=== PATIENT | male | born 1995 | race Caucasian/White ===

== ENCOUNTER 2024-02-02 09:20 | Emergency (ER) | payer OTHER, SELFPAY ==
[2024-02-02 09:31] VITALS: BP 171/106
--- NOTE | 2024-02-02 10:35 | ED.GENMED ---
History of Present Illness
General
Chief Complaint: DVT/Possible Blood Clot
Source: patient
Exam Limitations: none
Time Seen by Provider: 02/02/24 10:31
History of Present Illness
History of Present Illness:
See MDM
Past History
Past History
ED Past Medical History: Psychiatric
Social History
Personal: Single
Phy Exam
Physical Exam
Physical Exam:
See MDM
Course
Orders/Labs/Results
Orders:
Orders
02/02/24 10:34
US Periph Venous LOWER Ext LT Urgent
Comment:
Reason For Exam: left thigh pain
Vital Signs
Initial and Last Documented VS:
Initial Vital Signs
Temp Pulse Resp BP Pulse Ox
98.1 F 105 18 171/106 98
02/02/24 09:31 02/02/24 09:31 02/02/24 09:31 02/02/24 09:31 02/02/24 09:31
Last Documented Vital Signs
Temp Pulse Resp BP Pulse Ox
98.1 F 105 18 171/106 98
02/02/24 09:31 02/02/24 09:31 02/02/24 09:31 02/02/24 09:31 02/02/24 09:31
MDM/Problems Addressed
Differential Diagnosis Includes:
HPI and MDM Narrative:
28-year-old male presenting with left thigh pain. Patient has been developing bilateral flank pain for the past several days. He woke up with worsening left thigh pain. Patient is concerned he could have a blood clot. On exam, patient has mild
tenderness to his mid left thigh. The distal extremity is neurovascularly intact. Will obtain ultrasound rule DVT but discussed likely nerve irritation from sciatica and further outpatient workup
Physical exam
General: Well appearing and non-toxic
HEENT: protecting airway
Neck: appears supple
CV: No evidence of cyanosis
Resp: No accessory muscle use
Abd: Non-distended
Extremities: No deformities. Mild tenderness to palpation of left mid thigh. No skin changes. Distal extremity neurovascular intact
Back: Mild left paralumbar tenderness. No midline tenderness
Neuro: alert
Psych: Normal affect
Skin: Intact
Problems Addressed including Acute and Chronic Conditions affecting care:
1. Left thigh pain
Acuity: acute
Prognosis: stable
Details: Likely in setting of. Will obtain ultrasound rule DVT. Discussed outpatient follow-up for further workup
Updates
Ultrasound negative for DVT. Discussed follow-up with PCP
Differential Diagnosis (but not limited to): DVT, muscle strain, sciatica
Testing considered: Lumbar x-ray
Drug therapy (if applicable): OTC meds, please see d/c instruction regarding Rx drugs
Amount and/or Complexity of Data Reviewed
Clinical info obtained from: Patient
External data reviewed: N/A
Labs I independently reviewed (but not limited to): N/A
Radiology: ultrasound report reviewed
Pulse Ox: not hypoxic
EKG independently reviewed: N/A
Follow Up Clerk: N/A
Critical Care: N/A
Risk of Complication:
Social Determinants of health: Good social support
Discussed with other providers: N/A
Escalation of Care includes Admit/Obs: After being observed in the Emergency Department, pt stable for discharge.
Occasional wrong word or 'sound a like' substitutions may have occurred due to the inherent limitations of voice recognition software. Read the chart carefully and recognize, using context, where substitutions have occurred.
*Critical Care Note
Total Time (30-74mins, 75-104mins- exclusive of procedures): Not Applicable
ED Attending Note
-
Portions of this chart may have been created with voice recognition software.� Occasional wrong word or��sound alike� substitutions may have occurred due to the inherent limitations of voice recognition software.
Discharge Plan
Departure
Patient Disposition: Home (Routine Discharge)
Date of Disposition: 02/02/24
Time of Disposition: 12:21
Patient with high blood pressure during this ER visit?: Yes
Discharge Problem:
Acute thigh pain
Instructions: BLOOD PRESSURE
Prescriptions:
No Action
clonazepam 1 MG tablet
1 mg PO BID
bupropion HCl 100 MG tablet
100 mg PO BID
clonazepam 2 MG tablet
2 mg PO HS
ibuprofen [Advil] 200 MG tablet
400 mg PO PRN PRN (Reason: pain)
Referrals:
Ignacio Mccabe DO [Family Provider] -
Activity Restrictions/Additional Instructions:
As we discussed, the ultrasound was negative for any evidence of blood clots. Your pain could be related to nerve pain which could be a symptom of something called sciatica. Please have this reassessed by your primary care doctor. Please return
for worsening symptoms.
Interventions
Interventions:
*Risk Screen - Suicide Last Done: 02/02/24 09:34
*General Assessment Last Done: 02/02/24 09:34
*Neglect/Abuse Screening Last Done: 02/02/24 09:34
Discharge Date and Time
Print Language: LAO
== END 2024-02-02 12:32 | disposition home or self-care (01) ==
LOC: EMR 09:20
PROVIDERS: EMERGENCY PHYSICIAN Student in an Organized Health Care Education/Training Program; FAMILY PHYSICIAN Family Medicine
DX: M79.652 Pain in left thigh (principal); R03.0 Elevated blood-pressure reading, without diagnosis of hypertension
CPT/HCPCS: 99284; 93971